=== PATIENT | male | born 1950 | race Caucasian/White ===

== ENCOUNTER 2018-06-23 06:44 | Day surgery (SDC) | payer MEDICARE, OTHER ==
[~2018-06-23] VITALS: Ht 177.8 cm; Wt 59.0 kg
[~2018-06-23 06:44] MED LIST: ALFU10TA30 PO; AMLO-512 PO; AMYL1CAP62 PO; ASPI81 PO; CITA10TA68 PO; CYCLOPENTOLATE HCL 1% 2 ML OPHTHALMIC SOLUTION ONE; FINA5TAB41 PO; FLURBIPROFEN SODIUM 0.03% 2.5 ML OPHTHALMIC SOLUTION ONE; FOLI1 PO; GLIP10 PO; KDUR10 PO; LOPE2 PO; NIFE30TA5 PO; OFLOXACIN 0.3% 5 ML OPHTHALMIC SOLUTION ONE; PHENYLEPHRINE HCL 2.5% 2 ML OPHTHALMIC SOLUTION ONE; PHOSLOC PO; PIOG45TA4 PO; RISP.5 PO; SITA100 PO; SODIUM CHLORIDE 0.9% 500 ML IV ONE; TETRACAINE HCL/PF 0.5% 4 ML OPHTHALMIC SOLUTION ONE; THIA100T67 PO; TROPICAMIDE 1% 2 ML OPHTHALMIC SOLUTION ONE
[2018-06-23] MEDS ORDERED: FentaNYL CITRATE-PF 100 MCG/2 ML VIAL IVP ONE (06:45)
[2018-06-23] MEDS ORDERED: SODIUM CHLORIDE 0.9% 500 ML IV ONE (06:45)
[2018-06-23] MEDS ORDERED: MIDAZOLAM HCL 2 MG/2 ML VIAL IVP ONE (06:45)
[2018-06-23] MEDS ORDERED: RINGERS SOLUTION,LACTATED 500 ML IV ONE (07:00)
[2018-06-23] MEDS ORDERED: TETRACAINE HCL/PF 0.5% 4 ML OPHTHALMIC SOLUTION OD ONE (07:00)
[2018-06-23 07:15] LABS: GLUCOMETER DEV NAME(LOC) SDS.; GLUCOSE,POINT OF CARE 68 MG/DL (70-110)
[2018-06-23] MEDS: TROPICAMIDE 1% 2 ML OPHTHALMIC SOLUTION OD SCH ×3 (07:16→07:31)
[2018-06-23] MEDS: CYCLOPENTOLATE HCL 1% 2 ML OPHTHALMIC SOLUTION OD SCH ×3 (07:17→07:31)
[2018-06-23] MEDS: PHENYLEPHRINE HCL 2.5% 2 ML OPHTHALMIC SOLUTION OD SCH ×3 (07:17→07:32)
[2018-06-23] MEDS: OFLOXACIN 0.3% 5 ML OPHTHALMIC SOLUTION OD SCH ×3 (07:17→07:31)
[2018-06-23] MEDS: FLURBIPROFEN SODIUM 0.03% 2.5 ML OPHTHALMIC SOLUTION OD SCH ×3 (07:17→07:32)
[2018-06-23 11:21] LABS: GLUCOMETER DEV NAME(LOC) SDS.; GLUCOSE,POINT OF CARE 61 MG/DL (70-110)
== END 2018-06-23 11:25 | disposition home or self-care (01) ==
LOC: SURGERY 06:44
PROVIDERS: ATTEND Ophthalmology
DX: E11.36 Type 2 diabetes mellitus with diabetic cataract (principal); H25.11 Age-related nuclear cataract, right eye; E11.3413 Type 2 diabetes mellitus with severe nonproliferative diabetic retinopathy with macular edema, bilateral; I12.0 Hypertensive chronic kidney disease with stage 5 chronic kidney disease or end stage renal disease; E11.22 Type 2 diabetes mellitus with diabetic chronic kidney disease; N18.6 End stage renal disease; K74.60 Unspecified cirrhosis of liver; H25.043 Posterior subcapsular polar age-related cataract, bilateral; Z87.891 Personal history of nicotine dependence; Z98.890 Other specified postprocedural states
CPT/HCPCS: 66984; 82962; 93005; C1780; J2250; J3010; J7040

== ENCOUNTER → 2018-09-22 | Day surgery (SDC) | payer MEDICARE, OTHER ==
[~2018-09-22] VITALS: Ht 172.7 cm; Wt 61.8 kg
[~2018-09-22] MED LIST changes: -AMLO-512 PO; +AMLO10TA7 PO; +EPINEPHrine 1:1,000 [1 MG/ML] AMP IM ONE; +FentaNYL CITRATE-PF 100 MCG/2 ML VIAL IVP ONE; +HYALURONATE SOD/CHONDROITIN SOD 0.5 ML VIAL IO ONE; +HYALURONATE SODIUM 12 MG/ML 0.8 ML SYRINGE IO ONE; +LIDOCAINE/PF 1% 2 ML VIAL IM ONE; +MIDAZOLAM HCL 2 MG/2 ML VIAL IVP ONE; +POVIDONE-IODINE 10% 15 ML SOLUTION UD TP ONE; +RINGERS SOLUTION,LACTATED 0 ML IV ONE; +TETRACAINE HCL/PF 0.5% 4 ML OPHTHALMIC SOLUTION OS ONE
[2018-09-22 08:30] LABS: GLUCOMETER DEV NAME(LOC) SDS.; GLUCOSE,POINT OF CARE 229 MG/DL (70-110)
[2018-09-22] MEDS: PHENYLEPHRINE HCL 2.5% 2 ML OPHTHALMIC SOLUTION OS SCH ×3 (08:36→08:54)
[2018-09-22] MEDS: CYCLOPENTOLATE HCL 1% 2 ML OPHTHALMIC SOLUTION OS SCH ×3 (08:36→08:54)
[2018-09-22] MEDS: FLURBIPROFEN SODIUM 0.03% 2.5 ML OPHTHALMIC SOLUTION OS SCH ×3 (08:37→08:54)
[2018-09-22] MEDS: TROPICAMIDE 1% 2 ML OPHTHALMIC SOLUTION OS SCH ×3 (08:37→08:54)
[2018-09-22] MEDS: OFLOXACIN 0.3% 5 ML OPHTHALMIC SOLUTION OS SCH ×3 (08:37→08:54)
== END | disposition home or self-care (01) ==
LOC: SURGERY 07:56
PROVIDERS: ATTEND Ophthalmology
DX: E11.36 Type 2 diabetes mellitus with diabetic cataract (principal); H25.22 Age-related cataract, morgagnian type, left eye; K74.60 Unspecified cirrhosis of liver; I12.0 Hypertensive chronic kidney disease with stage 5 chronic kidney disease or end stage renal disease; E11.22 Type 2 diabetes mellitus with diabetic chronic kidney disease; N18.6 End stage renal disease; Z99.2 Dependence on renal dialysis; J44.9 Chronic obstructive pulmonary disease, unspecified; K21.9 Gastro-esophageal reflux disease without esophagitis; F32.9 Major depressive disorder, single episode, unspecified; E11.40 Type 2 diabetes mellitus with diabetic neuropathy, unspecified; Z87.891 Personal history of nicotine dependence; Z72.89 Other problems related to lifestyle; Z79.899 Other long term (current) drug therapy; Z98.890 Other specified postprocedural states
CPT/HCPCS: 66982; 82962; 93005; C1780; J0171; J2250; J3010; J3490 ×2; J7040; J7120